=== PATIENT | female | born 1970 | race African-American/Black ===

== ENCOUNTER 2017-02-17 11:46 | Emergency (ER) | payer MEDICAID ==
[2017-02-17 12:17] VITALS: BP 118/79
== END 2017-02-17 13:00 | disposition home or self-care (01) ==
LOC: ER 11:46
DX: J02.9 Acute pharyngitis, unspecified (principal); Z88.8 Allergy status to other drugs, medicaments and biological substances

== ENCOUNTER 2018-10-31 04:25 | Emergency (ER) | payer MEDICAID ==
[~2018-10-31] VITALS: Ht 165.1 cm; Wt 73.9 kg
[2018-10-31 07:00] VITALS: BP 111/82
== END 2018-10-31 07:16 | disposition home or self-care (01) ==
LOC: ER 04:25
DX: J03.90 Acute tonsillitis, unspecified (principal); Z88.1 Allergy status to other antibiotic agents

== ENCOUNTER 2019-06-09 13:53 | Emergency (ER) | payer MEDICAID ==
[~2019-06-09] VITALS: Ht 165.1 cm; Wt 75.7 kg
[2019-06-09 15:14] VITALS: BP 123/63
== END 2019-06-09 17:03 | disposition home or self-care (01) ==
LOC: ER 13:58
DX: J03.90 Acute tonsillitis, unspecified (principal); Z88.8 Allergy status to other drugs, medicaments and biological substances

== ENCOUNTER 2022-01-29 22:26 | Emergency (ER) | payer MEDICAID ==
[~2022-01-29] VITALS: Ht 165.1 cm; Wt 77.0 kg
[2022-01-30 03:00] VITALS: BP 124/73
== END 2022-01-30 03:10 | disposition home or self-care (01) ==
LOC: ER 22:28
DX: M25.512 Pain in left shoulder (principal); Z88.8 Allergy status to other drugs, medicaments and biological substances